=== PATIENT | female | born 1950 ===

== ENCOUNTER 2018-03-27 13:42 | Inpatient (IN) | payer OTHER ==
[2018-03-27] MEDS ORDERED: Albuterol-Ipratrop 3 mg / 0.5 (3 ml) UD IH STA (14:08)
--- NOTE | 2018-03-27 14:20 | RAD ---
Date of service: 03/27/2018 PROCEDURE: CHEST RADIOGRAPH, 1 VIEW HISTORY: SOB, cough, h/o liver CA COMPARISON: None available. FINDINGS: LUNGS: Opacity at the left lung base may represent consolidation or mass. No right-sided opacity. PLEURA: Moderate left pleural effusion. No right pleural effusion. No pneumothorax. CARDIOVASCULAR: Normal. OSSEOUS STRUCTURES: No significant abnormalities. VISUALIZED UPPER ABDOMEN: Normal. OTHER FINDINGS: None. IMPRESSION: Moderate left pleural effusion. Opacity at left base may represent consolidation or neoplasm.
[2018-03-27 14:29] LABS: BASO % 0.7 % (0.0-2.0); EOS # 0.2 K/uL (0.0-0.7); EOS % 2.7 % (0.0-4.0); HEMOGLOBIN 10.2 g/dL (11.0-16.0); LYMPH # 1.2 K/uL (1.0-4.3); LYMPH % 18.6 % (20.0-40.0); MEAN CORPUSCULAR HEMOGLOBIN 26.6 pg (27.0-31.0); MEAN CORPUSCULAR HGB CONC 33.3 g/dL (33.0-37.0); MEAN PLATELET VOLUME 6.6 fL (7.2-11.7); MONO # 0.5 K/uL (0.0-0.8); MONO % 8.1 % (0.0-10.0); NEUT # 4.3 K/uL (1.8-7.0); NEUT % 69.9 % (50.0-75.0); RBC 3.85 Mil/uL (3.80-5.20); RED CELL DISTRIBUTION WIDTH 14.9 % (11.5-14.5); WHITE BLOOD COUNT 6.2 K/uL (4.8-10.8)
[2018-03-27 14:36] LABS: INR 1.2; PROTHROMBIN TIME 12.7 SECONDS (9.7-12.2)
[2018-03-27] MEDS ORDERED: Albuterol-Ipratrop 3 mg / 0.5 (3 ml) UD ONE (14:37)
[2018-03-27 14:42] LABS: ALB/GLOB RATIO 0.8 (1.0-2.1); ALBUMIN 3.5 g/dL (3.5-5.0); ALT/SGPT 30 U/L (9-52); AST/SGOT 47 U/L (14-36); BLOOD UREA NITROGEN 5 mg/dL (7-17); CALCIUM 9.1 mg/dl (8.6-10.4); GFR AFRICAN-AMERICAN > 60; GFR NON-AFRICAN AMERICAN > 60; LIPASE 305 U/L (23-300)
[2018-03-27] MEDS ORDERED: Potassium Chloride 20 mEq ER Tab PO STA (14:47)
[2018-03-27 14:54] LABS: SQUAMOUS EPITHIAL 16 /hpf (0-5); URINE BACTERIA RARE (<OCC); URINE BILIRUBIN NEGATIVE (NEGATIVE); URINE BLOOD NEGATIVE (NEGATIVE); URINE CALCIUM OXALATE CRYSTALS FEW /hpf (<OCC); URINE CLARITY Hazy (Clear); URINE COLOR Amber (YELLOW); URINE GLUCOSE (UA) NORMAL (Normal); URINE LEUKOCYTE ESTERASE 2+ Leu/uL (Negative); URINE PROTEIN 1+ mg/dL (NEGATIVE)
[2018-03-27 14:54] LABS: B-TYPE NATRIURETIC PEPTIDE 109 pg/mL (0-900)
[2018-03-27] MEDS ORDERED: Potassium Chloride 20 mEq ER Tab PO ONE (15:09)
[2018-03-27] MEDS ORDERED: Iodixanol 320 MG/ML 100 ML BOTTLE IV ONE (15:28)
--- NOTE | 2018-03-27 16:32 | CT ---
Date of service: 03/27/2018 PROCEDURE: CT Chest with contrast (Pulmonary Angiogram) HISTORY: SOB, cough, h/o liver CA. r/o PE, PNA. COMPARISON: None available. TECHNIQUE: Axial computed tomography images were obtained of the chest in the pulmonary arterial phase of enhancement. Coronal and sagittal reformatted images were created and reviewed. Intravenous contrast dose: 100 mL Visipaque 320 Radiation dose: Total exam DLP = 165.8 mGy-cm. This CT exam was performed using one or more of the following dose reduction techniques: Automated exposure control, adjustment of the mA and/or kV according to patient size, and/or use of iterative reconstruction technique. FINDINGS: PULMONARY ARTERIES: Unremarkable. No pulmonary embolism. AORTA: No acute findings. No thoracic aortic aneurysm. LUNGS: Peripheral right upper lobe 5 mm nodule (series 2, image 63). Medial right upper lobe 1.3 x 1.0 cm nodule (series 2, image 71). Medial right lower lobe 8 mm nodule (series 2, image 117). Inferior right lower lobe 5 mm nodule (series 2, image 125). Segmental left lower lobe atelectasis. No mass or pulmonary consolidation. PLEURAL SPACES: Large left pleural effusion. No pneumothorax. HEART: Unremarkable. No cardiomegaly. No significant pericardial effusion. LYMPH NODES: No lymphadenopathy. BONES, CHEST WALL: Unremarkable. No fracture or destructive lesion OTHER FINDINGS: 3.0 x 1.5 cm low-density lesion in the anterior left hepatic lobe (series 2, too 170) Abdominal ascites. Partially imaged questionable right hydronephrosis. IMPRESSION: Unremarkable CT pulmonary angiogram. No pulmonary embolus. Large left pleural effusion with subjacent atelectasis. Multiple right-sided pulmonary nodules ranging from 5-13 mm. 3.2 cm low-density lesion in the liver. Questionable partially imaged right hydronephrosis.
[2018-03-27] MEDS ORDERED: Piperacillin/Tazobact 3.375 gm 100 ML IVPB STA (16:56)
--- NOTE | 2018-03-27 16:58 | C.PDOC ---
Time Seen by Provider: 03/27/18 13:58 Chief Complaint (Nursing): Shortness Of Breath History Per: Patient, Family Onset/Duration Of Symptoms: Days (few) Current Symptoms Are (Timing): Still Present Exacerbating Factor(s): Coughing Severity: Moderate Associated Symptoms: Ankle/Leg Swelling Additional History Per: Prior Records Past Medical History Reviewed: Historical Data, Nursing Documentation, Vital Signs Vital Signs: Last Vital Signs Temp 98.3 F 03/27/18 16:04 Pulse 104 H 03/27/18 16:04 Resp 25 H 03/27/18 16:04 BP 147/86 03/27/18 16:04 Pulse Ox 99 03/27/18 16:58 - Medical History PMH: Hypothyroidism, Malignancy (Liver) Surgical History: Cholecystectomy Other Surgeries: Liver surgery for CA and drain placement Family History: States: Unknown Family Hx - Social History Hx Tobacco Use: No Hx Alcohol Use: No Hx Substance Use: No Review Of Systems Except As Marked, All Systems Reviewed And Found Negative. Constitutional: Positive for: Malaise. Negative for: Fever ENT: Negative for: Nose Congestion, Throat Pain Respiratory: Positive for: Cough, Shortness of Breath. Negative for: Hemoptysis , Sputum Gastrointestinal: Negative for: Vomiting, Abdominal Pain, Diarrhea Genitourinary: Negative for: Dysuria Musculoskeletal: Negative for: Neck Pain Skin: Negative for: Rash Neurological: Negative for: Weakness, Numbness Physical Exam - Physical Exam Appears: No Acute Distress, Chronically Ill Skin: Normal Color, Warm, Dry Head: Atraumatic, Normacephalic Eye(s): bilateral: PERRL, EOMI Neck: Normal ROM, Supple Cardiovascular: Rhythm Regular Respiratory: Decreased Breath Sounds (left lower lung field), No Accessory Muscle Use Gastrointestinal/Abdominal: Soft, No Tenderness, Ascites, Other (Abdominal drain in place) Extremity: Normal ROM, Pedal Edema, No Calf Tenderness Neurological/Psych: Oriented x3, Normal Motor, Normal Sensation ED Course And Treatment - Laboratory Results Result Diagrams: 03/27/18 14:20 03/27/18 14:20 Lab Interpretation: Abnormal Interpretation Of Abnormal: Hypokalemia. Mild anemia. ECG: Interpreted By Me, Viewed By Me ECG Rhythm: Sinus Tachycardia, Nonspecific Changes Rate From EC O2 Sat by Pulse Oximetry: 99 Pulse Ox Interpretation: Normal - Radiology CXR: Viewed By Me, Read By Radiologist CXR Interpretation: Yes: Other (left pleural effusion) - CT Scan/US CTA of chest Other Rad Studies (CT/US): Read By Radiologist, Radiology Report Reviewed CT/US Interpretation: IMPRESSION: Unremarkable CT pulmonary angiogram. No pulmonary embolus. Large left pleural effusion with subjacent atelectasis. Multiple right-sided pulmonary nodules ranging from 5-13 mm. 3.2 cm low- density lesion in the liver. Questionable partially imaged right hydronephrosis. Progress - Interventions Interventions:: Observation, Oxygen - Medications Administered Oral: Other (KCl) - Data Reviewed Data Reviewed: Lab, Diagnostic imaging, EKG, Old records - Patient Status Patient status: Partially improved - Continuity of Care Discussed patient case with:: Patient, Family-HIPPA compliant, ED Nurse, On- call PMD-pt unassigned - Patient Plan Patient Plan: Admission, Telemetry Disposition Discussed With DrTrino: Danial Blunt ([employer]vel Operator) Comment: He accepted pt on his service. Doctor Will See Patient In The: Hospital Counseled Patient/Family Regarding: Studies Performed, Diagnosis - Disposition Disposition: HOSPITALIZED Disposition Time: 17:08 Condition: SERIOUS - Clinical Impression Clinical Impression: Pleural effusion on left, Liver cancer, Dyspnea
[2018-03-27] MEDS ORDERED: Piperacill/Tazo 3.375gm in Dex 3.375 GM/50 ML BAG IVPB STA (17:08)
[2018-03-27] MEDS ORDERED: Albuterol-Ipratrop 3 mg / 0.5 (3 ml) UD INH PRN (20:10)
--- NOTE | 2018-03-27 20:13 | CP.PCM.HP ---
History of Present Illness - History of Present Illness History of Present Illness: COMPREHENSIVE HISTORY & PHYSICAL EXAM HPI Patient presented to [facility] ([facility] emergency room complaining of shortness of breath. Patient was evaluated in the ER, chest x-ray which showed left pleural effusion. CT of the chest was done which showed no pulmonary embolism. There was a large left pleural effusion with multiple tumors in the lungs. Patient has a history of CA of the liver is under the care of oncologist at [facility]. Currently patient is not on any medication. PAST HIST. PERSONAL HIST: Smoking. N Alcohol. N Allergy N Travel_- . FAMILY HIST : ROS : Constitutional: Negative for weight change, chills, night sweats, fatigue and usage of assist device. Eyes: Negative for redness, swelling, itching, discharge, vision changes, blurry vision, double vision, glaucoma, cataracts, Ears: Negative for hearing loss, ringing, , tinnitus, vertigo Nose: Negative for rhinorrhea, stuffiness, sniffing, itching, postnasal drip, discoloration, nasal congestion and epistaxis. Throat: Negative for throat clearing, sore throat, hoarseness, difficulty swallowing and difficulty speaking. Respiratory shortness of breath wheezing left pleuritic chest pain. Cardiovascular: Negative for chest pain, palpitations, orthopnea, PND, Edema of legs, leg cramps, angina, claudication, , irregular heartbeat, Neurology: Negative for irritability, muscle weakness, numbness and tingling, seizures, tremors, migraines, slurred speech, syncope, memory loss, mood changes , recurrent headaches Gastrointestinal: Negative for difficulty swallowing, diarrhea, constipation, black stools, rectal bleeding, nausea, flatulence, reflux, poor appetite, changes in bowel habits, abdominal pain Genitourinary: Negative for frequent urination, hematuria, discharge, incontinence, urinary retention, frequent UTI, Psychiatric: Negative for depression, anxiety/panic, suicidal tendencies, Musculoskeletal: Negative for swollen joints, back pain, , neck pain, morning stiffness of joints, . Skin: Negative for rash, ulcers, itching, dry skin and pigmented lesions. P/E: Constitutional: Appears stated age and in no apparent distress. Head: Normocephalic. Ears: External ear canals patent without inflammation. Tympanic membranes intact with normal light reflex and landmark. Eyes: Pupils are central, bilaterally equal, symmetrical and reacts to light with normal movements and no icterus or pallor. Nose: External nares are patent. Mucosa is pink Mouth-Throat: Good general appearance and condition. No post-pharyngeal/oropharyngeal erythema and tonsillar hypertrophy. Good dental hygiene. Neck-Lymphatic: Neck is supple with normal ROM, no thyromegaly, lymph nodes or masses. JVD is normal with no carotid bruit. Lungs: Decreased air entry on the left side Cardiovascular: S1 and S2 are normal with no murmurs, gallops and rub. GI Exam: No hepatomegaly. Abdomen is soft and non-tender. No Organomegaly , masses or hernias are evident and bowel sounds are normal and active. Neurology: Higher function and all cranial nerves intact, with no gross motor or sensory deficit. Superficial and deep reflexes are normal with downwards planters. No cerebellar deficit with normal gait. Musculoskeletal: No tender spots with normal curvature of the spine with no swelling or restricted ROM of the small and large joints. Extremities: Homans sign absent. Intact pulses with no pitting edema, calf tenderness or skin color changes. Skin: No rash, eruptions or abnormal skin pigmentation LAB/RADIOLOGY: ASSESMENT : Large left pleural effusion etiology probably secondary to underlying malignancy. CA of the liver PLAN: Pulmonary evaluation. Will need a pleural tap. Oxygen and nebulizer treatment Present on Admission - Present on Admission Any Indicators Present on Admission: No Past Patient History - Past Social History Smoking Status: Never Smoked - ENDOCRINE/METABOLIC Hx Hypothyroidism: Yes - GASTROINTESTINAL Other/Comment: liver CA - PSYCHIATRIC Hx Substance Use: No - SURGICAL HISTORY Hx Cholecystectomy: Yes Meds Allergies/Adverse Reactions: Allergies Allergy/AdvReac Type Severity Reaction Status Date / Time No Known Allergies Allergy Unverified 03/27/18 13:53 Results - Vital Signs Recent Vital Signs: Last Vital Signs Temp 98.3 F 03/27/18 16:04 Pulse 99 H 03/27/18 19:51 Resp 26 H 03/27/18 19:51 BP 118/78 03/27/18 19:51 Pulse Ox 96 03/27/18 19:51 - Labs Result Diagrams: 03/28/18 07:53 03/28/18 07:53 Labs: Laboratory Results - last 24 hr 03/27/18 03/27/18 03/27/18 14:20 14:20 14:20 WBC 6.2 RBC 3.85 Hgb 10.2 L Hct 30.8 L MCV 80.0 L MCH 26.6 L MCHC 33.3 RDW 14.9 H Plt Count 331 MPV 6.6 L Neut % (Auto) 69.9 Lymph % (Auto) 18.6 L Owsley % (Auto) 8.1 Eos % (Auto) 2.7 Baso % (Auto) 0.7 Neut # (Auto) 4.3 Lymph # (Auto) 1.2 Owsley # (Auto) 0.5 Eos # (Auto) 0.2 Baso # (Auto) 0.0 PT 12.7 H INR 1.2 APTT 31 D-Dimer, Quantitative 833 H Sodium 139 Potassium 2.9 L Chloride 101 Carbon Dioxide 29 Anion Gap 12 BUN 5 L Creatinine 0.6 L Est GFR ( Amer) > 60 Est GFR (Non-Af Amer) > 60 Random Glucose 113 H Calcium 9.1 Total Bilirubin 0.5 AST 47 H ALT 30 Alkaline Phosphatase 184 H Troponin I < 0.0120 NT-Pro-B Natriuret Pep 109 Total Protein 7.9 Albumin 3.5 Globulin 4.4 H Albumin/Globulin Ratio 0.8 L Lipase 305 H Urine Color Urine Clarity Urine pH Ur Specific Rogers Urine Protein Urine Glucose (UA) Urine Ketones Urine Blood Urine Nitrate Urine Bilirubin Urine Urobilinogen Ur Leukocyte Esterase Urine WBC (Auto) Urine RBC (Auto) Ur Squamous Epith Cells Calcium Oxalate Crystal Urine Bacteria 03/27/18 14:34 WBC RBC Hgb Hct MCV MCH MCHC RDW Plt Count MPV Neut % (Auto) Lymph % (Auto) Owsley % (Auto) Eos % (Auto) Baso % (Auto) Neut # (Auto) Lymph # (Auto) Owsley # (Auto) Eos # (Auto) Baso # (Auto) PT INR APTT D-Dimer, Quantitative Sodium Potassium Chloride Carbon Dioxide Anion Gap BUN Creatinine Est GFR ( Amer) Est GFR (Non-Af Amer) Random Glucose Calcium Total Bilirubin AST ALT Alkaline Phosphatase Troponin I NT-Pro-B Natriuret Pep Total Protein Albumin Globulin Albumin/Globulin Ratio Lipase Urine Color Daphne Urine Clarity Hazy Urine pH 5.0 Ur Specific Rogers 1.023 Urine Protein 1+ H Urine Glucose (UA) Normal Urine Ketones Negative Urine Blood Negative Urine Nitrate Negative Urine Bilirubin Negative Urine Urobilinogen 4.0 H Ur Leukocyte Esterase 2+ H Urine WBC (Auto) 13 H Urine RBC (Auto) 6 H Ur Squamous Epith Cells 16 H Calcium Oxalate Crystal Few H Urine Bacteria Rare
[2018-03-27] MEDS ORDERED: Latanoprost 2.5 ml Opht Soln OS SCH (22:00)
[2018-03-28 08:10] LABS: HEMOGLOBIN 9.4 g/dL (11.0-16.0); MEAN CELL VOLUME 80.4 fL (81.0-99.0); MEAN CORPUSCULAR HEMOGLOBIN 26.6 pg (27.0-31.0); MEAN CORPUSCULAR HGB CONC 33.1 g/dL (33.0-37.0); RBC 3.52 Mil/uL (3.80-5.20); WHITE BLOOD COUNT 4.7 K/uL (4.8-10.8)
[2018-03-28 09:03] LABS: ALB/GLOB RATIO 0.7 (1.0-2.1); ALBUMIN 2.8 g/dL (3.5-5.0); ALT/SGPT 30 U/L (9-52); AST/SGOT 45 U/L (14-36); BLOOD UREA NITROGEN 5 mg/dL (7-17); CALCIUM 8.8 mg/dl (8.6-10.4); GFR AFRICAN-AMERICAN > 60; GFR NON-AFRICAN AMERICAN > 60
[2018-03-28] MEDS: cefTRIAXone IV 1 gm in Dextros 50 ML IVPB SCH (09:27)
--- NOTE | 2018-03-28 09:37 | CP.PCM.CON ---
History of Present Illness - History of Present Illness History of Present Illness: reason for consultation: large left pleural effusion 67-year-old female with history of liver cancer status post surgery and chemotherapy presented with cough and chest tightness/shortness of breath. Cough is mostly dry. Denies fever chills. CAT scan of the chest consistent with large left pleural effusion with right lung nodules and liver mass. Patient lying comfortably in no acute distress with good saturation Review of Systems - Review of Systems All systems: reviewed and no additional remarkable complaints except (cough and chest tightness) Past Patient History - Past Social History Smoking Status: Never Smoked - CARDIAC Hx Cardiac Disorders: No - PULMONARY Hx Respiratory Disorders: No - NEUROLOGICAL Hx Neurological Disorder: No - HEENT Hx HEENT Problems: No - RENAL Hx Chronic Kidney Disease: No - ENDOCRINE/METABOLIC Hx Endocrine Disorders: Yes Hx Hypothyroidism: Yes - HEMATOLOGICAL/ONCOLOGICAL Hx Chemotherapy: Yes (november 2017) Other/Comment: Hx: Liver ca received 4 cycles of chemo treatment; last received november 2017 - INTEGUMENTARY Hx Dermatological Problems: No - MUSCULOSKELETAL/RHEUMATOLOGICAL Hx Falls: No - GASTROINTESTINAL Hx Gastrointestinal Disorders: Yes Other/Comment: liver CA - GENITOURINARY/GYNECOLOGICAL Hx Genitourinary Disorders: No - PSYCHIATRIC Hx Substance Use: No - SURGICAL HISTORY Hx Surgeries: Yes Hx Cholecystectomy: Yes Other/Comment: Liver surgery for cancer and drain placement - ANESTHESIA Hx Anesthesia: Yes Hx Anesthesia Reactions: No Meds Allergies/Adverse Reactions: Allergies Allergy/AdvReac Type Severity Reaction Status Date / Time No Known Allergies Allergy Unverified 03/27/18 13:53 - Medications Medications: Current Medications Albuterol/Ipratropium (Duoneb 3 Mg/0.5 Mg (3 Ml) Ud) 3 ml INH RQ4 PRN PRN Reason: Wheezing Cyproheptadine HCl (Periactin) 4 mg PO DAILY JENNIE Famotidine (Pepcid) 20 mg PO BID JENNIE Ceftriaxone Sodium (Rocephin Iv 1 Gm Duplex) 50 mls @ 100 mls/hr IVPB DAILY JENNIE PRN Reason: Protocol Last Admin: 03/28/18 09:27 Dose: 100 mls/hr Latanoprost (Xalatan Opht) 0 ml OS HS JENNIE Levothyroxine Sodium (Synthroid) 25 mcg PO 0630 JENNIE Pilocarpine HCl (Isopto Carpine 2% Opht Soln) 0 drop OS TID JENNIE Spironolactone (Aldactone) 25 mg PO DAILY [facility] Last Admin: 03/28/18 09:28 Dose: 25 mg Physical Exam - Head Exam Head Exam: ATRAUMATIC, NORMOCEPHALIC - Eye Exam Eye Exam: Normal appearance - Neck Exam Neck exam: Positive for: Normal Inspection - Respiratory Exam Respiratory Exam: Decreased Breath Sounds - Cardiovascular Exam Cardiovascular Exam: REGULAR RHYTHM - GI/Abdominal Exam GI & Abdominal Exam: Normal Bowel Sounds, Soft Results - Vital Signs Recent Vital Signs: Last Vital Signs Temp 97.8 F 03/28/18 07:32 Pulse 98 H 03/28/18 09:26 Resp 18 03/28/18 07:32 BP 111/73 03/28/18 09:26 Pulse Ox 96 03/28/18 07:32 - Labs Result Diagrams: 03/28/18 07:53 03/28/18 07:53 Labs: Laboratory Results - last 24 hr 03/27/18 03/27/18 03/27/18 14:20 14:20 14:20 WBC 6.2 RBC 3.85 Hgb 10.2 L Hct 30.8 L MCV 80.0 L MCH 26.6 L MCHC 33.3 RDW 14.9 H Plt Count 331 MPV 6.6 L Neut % (Auto) 69.9 Lymph % (Auto) 18.6 L Page % (Auto) 8.1 Eos % (Auto) 2.7 Baso % (Auto) 0.7 Neut # (Auto) 4.3 Lymph # (Auto) 1.2 Page # (Auto) 0.5 Eos # (Auto) 0.2 Baso # (Auto) 0.0 PT 12.7 H INR 1.2 APTT 31 D-Dimer, Quantitative 833 H Sodium 139 Potassium 2.9 L Chloride 101 Carbon Dioxide 29 Anion Gap 12 BUN 5 L Creatinine 0.6 L Est GFR ( Amer) > 60 Est GFR (Non-Af Amer) > 60 Random Glucose 113 H Calcium 9.1 Total Bilirubin 0.5 AST 47 H ALT 30 Alkaline Phosphatase 184 H Troponin I < 0.0120 NT-Pro-B Natriuret Pep 109 Total Protein 7.9 Albumin 3.5 Globulin 4.4 H Albumin/Globulin Ratio 0.8 L Lipase 305 H Urine Color Urine Clarity Urine pH Ur Specific Offerman Urine Protein Urine Glucose (UA) Urine Ketones Urine Blood Urine Nitrate Urine Bilirubin Urine Urobilinogen Ur Leukocyte Esterase Urine WBC (Auto) Urine RBC (Auto) Ur Squamous Epith Cells Calcium Oxalate Crystal Urine Bacteria 03/27/18 03/28/18 03/28/18 14:34 07:53 07:53 WBC 4.7 L RBC 3.52 L Hgb 9.4 L Hct 28.3 L MCV 80.4 L MCH 26.6 L MCHC 33.1 RDW 15.0 H Plt Count 314 MPV 7.0 L Neut % (Auto) Lymph % (Auto) Page % (Auto) Eos % (Auto) Baso % (Auto) Neut # (Auto) Lymph # (Auto) Page # (Auto) Eos # (Auto) Baso # (Auto) PT INR APTT D-Dimer, Quantitative Sodium 141 Potassium 3.4 L Chloride 103 Carbon Dioxide 29 Anion Gap 13 BUN 5 L Creatinine 0.6 L Est GFR ( Amer) > 60 Est GFR (Non-Af Amer) > 60 Random Glucose 74 Calcium 8.8 Total Bilirubin 0.7 AST 45 H ALT 30 Alkaline Phosphatase 151 H Troponin I NT-Pro-B Natriuret Pep Total Protein 6.7 Albumin 2.8 L Globulin 3.9 Albumin/Globulin Ratio 0.7 L Lipase Urine Color Daphne Urine Clarity Hazy Urine pH 5.0 Ur Specific Offerman 1.023 Urine Protein 1+ H Urine Glucose (UA) Normal Urine Ketones Negative Urine Blood Negative Urine Nitrate Negative Urine Bilirubin Negative Urine Urobilinogen 4.0 H Ur Leukocyte Esterase 2+ H Urine WBC (Auto) 13 H Urine RBC (Auto) 6 H Ur Squamous Epith Cells 16 H Calcium Oxalate Crystal Few H Urine Bacteria Rare Assessment & Plan (1) Pleural effusion on left Assessment and Plan: rule out secondary to malignancy thoracentesis Patient wants to discuss with her daughter Continue present treatment for now Status: Acute (2) Liver cancer Status: Acute
[2018-03-28] MEDS ORDERED: Levothyroxine 25 MCG TAB PO SCH (10:00)
[2018-03-28] MEDS: Pilocarpine 2% Opht (15 ml) OS SCH ×3 (10:07→17:55)
--- NOTE | 2018-03-28 14:37 | CP.PCM.PN ---
Subjective - Date & Time of Evaluation Date of Evaluation: 03/28/18 Time of Evaluation: 14:36 - Subjective Subjective: less shortness of breath. Vital signs are stable afebrile Physical examination remains unchanged Pulmonary evaluation noted. Awaiting patient's decision for pleural tap. Objective - Vital Signs/Intake and Output Vital Signs (last 24 hours): Temp Pulse Resp BP Pulse Ox 97.8 F 98 H 18 111/73 96 03/28/18 07:32 03/28/18 09:26 03/28/18 07:32 03/28/18 09:26 03/28/18 07:32 Intake and Output: 03/28/18 03/28/18 11:59 23:59 Intake Total 120 Balance 120 - Medications Medications: Current Medications Albuterol/Ipratropium (Duoneb 3 Mg/0.5 Mg (3 Ml) Ud) 3 ml INH RQ4 PRN PRN Reason: Wheezing Cyproheptadine HCl (Periactin) 4 mg PO DAILY [facility] Last Admin: 03/28/18 10:06 Dose: 4 mg Famotidine (Pepcid) 20 mg PO BID JENNIE Last Admin: 03/28/18 10:10 Dose: 20 mg Ceftriaxone Sodium (Rocephin Iv 1 Gm Duplex) 50 mls @ 100 mls/hr IVPB DAILY JENNIE PRN Reason: Protocol Last Admin: 03/28/18 09:27 Dose: 100 mls/hr Latanoprost (Xalatan Opht) 0 ml OS HS JENNIE Levothyroxine Sodium (Synthroid) 25 mcg PO 0630 JENNIE Pilocarpine HCl (Isopto Carpine 2% Opht Soln) 0 drop OS TID JENNIE Last Admin: 03/28/18 13:33 Dose: 1 drop Spironolactone (Aldactone) 25 mg PO DAILY [facility] Last Admin: 03/28/18 09:28 Dose: 25 mg - Labs Labs: 03/28/18 07:53 03/28/18 07:53 PT 12.7 SECONDS (9.7-12.2) H 03/27/18 14:20 INR 1.2 03/27/18 14:20 APTT 31 SECONDS (21-34) 03/27/18 14:20
[2018-03-28] MEDS ORDERED: Latanoprost 2.5 ml Opht Soln OS SCH (22:00)
[2018-03-29] MEDS: Levothyroxine 25 MCG TAB PO SCH (06:11)
[2018-03-29] MEDS ORDERED: Levothyroxine 25 MCG TAB PO SCH (06:30)
[2018-03-29] MEDS: Pilocarpine 2% Opht (15 ml) OS SCH (09:09)
[2018-03-29] MEDS: cefTRIAXone IV 1 gm in Dextros 50 ML IVPB SCH (09:38)
[2018-03-29] MEDS: Pilocarpine 2% Opht (15 ml) OU SCH ×2 (13:11→17:16)
--- NOTE | 2018-03-29 14:55 | CP.PCM.PN ---
Subjective - Date & Time of Evaluation Date of Evaluation: 03/29/18 Time of Evaluation: 14:53 - Subjective Subjective: patient currently has no shortness of breath or chest pain. Afebrile with vital signs stable Physical examination remain same. Patient has a permanent catheter in the abdominal cavity for periodic removal of ascites fluid by the family Waiting for pleural tap. Objective - Vital Signs/Intake and Output Vital Signs (last 24 hours): Temp Pulse Resp BP Pulse Ox 98.1 F 90 18 126/83 99 03/29/18 07:00 03/29/18 07:10 03/29/18 07:00 03/29/18 07:00 03/29/18 07:00 Intake and Output: 03/29/18 03/29/18 11:59 23:59 Intake Total 120 Balance 120 - Medications Medications: Current Medications Albuterol/Ipratropium (Duoneb 3 Mg/0.5 Mg (3 Ml) Ud) 3 ml INH RQ4 PRN PRN Reason: Wheezing Last Admin: 03/29/18 07:56 Dose: 3 ml Cyproheptadine HCl (Periactin) 4 mg PO DAILY JENNIE Last Admin: 03/29/18 09:08 Dose: 4 mg Famotidine (Pepcid) 20 mg PO BID JENNIE Last Admin: 03/29/18 09:08 Dose: 20 mg Ceftriaxone Sodium (Rocephin Iv 1 Gm Duplex) 50 mls @ 100 mls/hr IVPB DAILY JENNIE PRN Reason: Protocol Last Admin: 03/29/18 09:38 Dose: 100 mls/hr Latanoprost (Xalatan Opht) 0 ml OU HS JENNIE Levothyroxine Sodium (Synthroid) 25 mcg PO 0630 JENNIE Last Admin: 03/29/18 06:11 Dose: 25 mcg Pilocarpine HCl (Isopto Carpine 2% Opht Soln) 1 drop OU TID JENNIE Last Admin: 03/29/18 13:11 Dose: 1 drop Spironolactone (Aldactone) 25 mg PO DAILY [facility] Last Admin: 03/29/18 09:08 Dose: 25 mg - Labs Labs: 03/28/18 07:53 03/28/18 07:53 PT 12.7 SECONDS (9.7-12.2) H 03/27/18 14:20 INR 1.2 03/27/18 14:20 APTT 31 SECONDS (21-34) 03/27/18 14:20
[2018-03-29] MEDS: Latanoprost 2.5 ml Opht Soln OU SCH (21:29)
[2018-03-30] MEDS: Levothyroxine 25 MCG TAB PO SCH (05:53)
[2018-03-30] MEDS: cefTRIAXone IV 1 gm in Dextros 50 ML IVPB SCH (09:33)
[2018-03-30] MEDS: Pilocarpine 2% Opht (15 ml) OU SCH ×3 (09:33→17:22)
--- NOTE | 2018-03-30 12:42 | PCM.SURG1 ---
Surgeon's Initial Post Op Note - Surgeon's Notes Surgeon: Lukas Xie md Actuarial Science Teacher: none Type of Anesthesia: Local Pre-Operative Diagnosis: Left pleural effusion Operative Findings: US showed moderate left effusion Post-Operative Diagnosis: Left pleural effusion Operation Performed: US guided left thoracentesis Specimen/Specimens Removed: 800 cc of straw colored fluid Estimated Blood Loss: EBL {In ML}: 0 Blood Products Given: N/A Drains Used: No Drains Post-Op Condition: Fair Date of Surgery/Procedure: 03/30/18 Time of Surgery/Procedure: 12:00
--- NOTE | 2018-03-30 13:24 | CP.PCM.PN ---
Subjective - Date & Time of Evaluation Date of Evaluation: 03/30/18 Time of Evaluation: 12:00 - Subjective Subjective: patient seen and examined Status post thoracentesis and 800 cc off straw-colored fluid removed Afebrile No chest pain Objective - Vital Signs/Intake and Output Vital Signs (last 24 hours): Temp Pulse Resp BP Pulse Ox 98.0 F 96 H 18 128/85 99 03/30/18 12:22 03/30/18 12:22 03/30/18 12:22 03/30/18 12:22 03/30/18 12:22 - Medications Medications: Current Medications Albuterol/Ipratropium (Duoneb 3 Mg/0.5 Mg (3 Ml) Ud) 3 ml INH RQ4 PRN PRN Reason: Wheezing Last Admin: 03/29/18 07:56 Dose: 3 ml Cyproheptadine HCl (Periactin) 4 mg PO DAILY [facility] Last Admin: 03/30/18 09:33 Dose: 4 mg Famotidine (Pepcid) 20 mg PO BID [facility] Last Admin: 03/30/18 09:33 Dose: 20 mg Ceftriaxone Sodium (Rocephin Iv 1 Gm Duplex) 50 mls @ 100 mls/hr IVPB DAILY JENNIE PRN Reason: Protocol Last Admin: 03/30/18 09:33 Dose: 100 mls/hr Latanoprost (Xalatan Opht) 0 ml OU HS [facility] Last Admin: 03/29/18 21:29 Dose: 2.5 ml Levothyroxine Sodium (Synthroid) 25 mcg PO 0630 [facility] Last Admin: 03/30/18 05:53 Dose: 25 mcg Pilocarpine HCl (Isopto Carpine 2% Opht Soln) 1 drop OU TID JENNIE Last Admin: 03/30/18 13:22 Dose: 1 drop Spironolactone (Aldactone) 25 mg PO DAILY [facility] Last Admin: 03/30/18 09:33 Dose: 25 mg - Labs Labs: 03/28/18 07:53 03/28/18 07:53 PT 12.7 SECONDS (9.7-12.2) H 03/27/18 14:20 INR 1.2 03/27/18 14:20 APTT 31 SECONDS (21-34) 03/27/18 14:20 - Head Exam Head Exam: ATRAUMATIC, NORMOCEPHALIC - ENT Exam ENT Exam: Mucous Membranes Moist - Neck Exam Neck Exam: Normal Inspection - Respiratory Exam Respiratory Exam: Decreased Breath Sounds - Cardiovascular Exam Cardiovascular Exam: REGULAR RHYTHM - GI/Abdominal Exam GI & Abdominal Exam: Soft Assessment and Plan (1) Pleural effusion on left Assessment & Plan: status post thoracentesis Fluid analysis Followup chest x-ray Status: Acute (2) Liver cancer Status: Acute
--- NOTE | 2018-03-30 13:52 | CP.PCM.PN ---
Subjective - Date & Time of Evaluation Date of Evaluation: 03/30/18 Time of Evaluation: 13:51 - Subjective Subjective: 800 cc of straw-colored fluid removed from the left pleural cavity. Patient clinically stable Will observe for another 24 hours if stable will discharge in a.m. and follow up with [facility] oncology department. Objective - Vital Signs/Intake and Output Vital Signs (last 24 hours): Temp Pulse Resp BP Pulse Ox 98.0 F 96 H 18 128/85 99 03/30/18 12:22 03/30/18 12:22 03/30/18 12:22 03/30/18 12:22 03/30/18 12:22 - Medications Medications: Current Medications Albuterol/Ipratropium (Duoneb 3 Mg/0.5 Mg (3 Ml) Ud) 3 ml INH RQ4 PRN PRN Reason: Wheezing Last Admin: 03/29/18 07:56 Dose: 3 ml Cyproheptadine HCl (Periactin) 4 mg PO DAILY [facility] Last Admin: 03/30/18 09:33 Dose: 4 mg Famotidine (Pepcid) 20 mg PO BID [facility]ENNIE Last Admin: 03/30/18 09:33 Dose: 20 mg Ceftriaxone Sodium (Rocephin Iv 1 Gm Duplex) 50 mls @ 100 mls/hr IVPB DAILY [facility]ENN[facility] PRN Reason: Protocol Last Admin: 03/30/18 09:33 Dose: 100 mls/hr Latanoprost (Xalatan Opht) 0 ml OU HS [facility] Last Admin: 03/29/18 21:29 Dose: 2.5 ml Levothyroxine Sodium (Synthroid) 25 mcg PO 0630 JENNIE Last Admin: 03/30/18 05:53 Dose: 25 mcg Pilocarpine HCl (Isopto Carpine 2% Opht Soln) 1 drop OU TID JENNIE Last Admin: 03/30/18 13:22 Dose: 1 drop Spironolactone (Aldactone) 25 mg PO DAILY [facility] Last Admin: 03/30/18 09:33 Dose: 25 mg - Labs Labs: 03/28/18 07:53 03/28/18 07:53 PT 12.7 SECONDS (9.7-12.2) H 03/27/18 14:20 INR 1.2 03/27/18 14:20 APTT 31 SECONDS (21-34) 03/27/18 14:20
[2018-03-30 14:05] LABS: BODY FLUID TYPE PLEURAL
--- NOTE | 2018-03-30 14:06 | RAD ---
Date of service: 03/30/2018 HISTORY: POST THORACENTESIS, ONE VIEW CHEST, R/O PTX COMPARISON: 03/27/2018. FINDINGS: LUNGS: The right lung is clear. There is linear atelectasis in the right lower lobe. PLEURA: There is interval decrease in size of left pleural effusion with residual small pleural effusion. No pneumothorax apparent. CARDIOVASCULAR: Normal. OSSEOUS STRUCTURES: No significant abnormalities. VISUALIZED UPPER ABDOMEN: Normal. OTHER FINDINGS: None. IMPRESSION: Interval decrease in size of left pleural effusion with residual small effusion. No pneumothorax.
--- NOTE | 2018-03-30 14:52 | US ---
PROCEDURE: Date of procedure: 03/30/2018 Procedure: 1. Ultrasound-guided left thoracentesis, CPT 81594 Medications: 6cc 1% Lidocaine HISTORY: Left pleural effusion, shortness of breath TECHNIQUE: Following informed consent ,the Patients' left chest was marked. Procedure time-out was called, and the patient was placed in the sitting position and limited ultrasound showed a large left effusion. The patient's left back was prepped and draped in the usual sterile fashion. After the skin was anesthetized with lidocaine, a drainage catheter was advanced under ultrasound guidance into the pleural space. Ultrasound-guided thoracentesis was performed. A total of 800 cubic centimeters of straw-colored fluid removed without complication. A Xeroform dressing was applied. IMPRESSION: Ultrasound guided left thoracentesis. There were no immediate complications.
[2018-03-30 14:59] LABS: BF GROSS APPEARANCE CLOUDY (CLEAR); BODY FLUID MONO/MACROPHAGE 4 % (0-0); BODY FLUID TOTAL COUNT 100 (0-0)
[2018-03-30] MEDS: Latanoprost 2.5 ml Opht Soln OU SCH (21:13)
[2018-03-31] MEDS: Levothyroxine 25 MCG TAB PO SCH (05:58)
[2018-03-31] MEDS: Pilocarpine 2% Opht (15 ml) OU SCH ×2 (10:44→14:19)
[2018-03-31] MEDS: cefTRIAXone IV 1 gm in Dextros 50 ML IVPB SCH (10:45)
--- NOTE | 2018-03-31 13:48 | CP.PCM.DIS ---
Provider - Provider Date of Admission: 03/27/18 17:09 Attending physician: Danial Blunt MD Time Spent in preparation of Discharge (in minutes): 35 Hospital Course - Lab Results Lab Results: Micro Results 03/30/18 14:03 Pleural Fluid Gram Stain - Final 03/30/18 14:03 Pleural Fluid Body Fluid Culture - Preliminary NO GROWTH AFTER 24 HOURS 03/27/18 14:20 Blood Blood Culture - Preliminary NO GROWTH AFTER 3 DAYS 03/27/18 14:45 Blood Blood Culture - Preliminary NO GROWTH AFTER 3 DAYS 03/27/18 14:34 Urine Urine Culture - Final No Growth (<1,000 CFU/ML) Most Recent Lab Values WBC 4.7 K/uL (4.8-10.8) L 03/28/18 07:53 RBC 3.52 Mil/uL (3.80-5.20) L 03/28/18 07:53 Hgb 9.4 g/dL (11.0-16.0) L 03/28/18 07:53 Hct 28.3 % (34.0-47.0) L 03/28/18 07:53 MCV 80.4 fL (81.0-99.0) L 03/28/18 07:53 MCH 26.6 pg (27.0-31.0) L 03/28/18 07:53 MCHC 33.1 g/dL (33.0-37.0) 03/28/18 07:53 RDW 15.0 % (11.5-14.5) H 03/28/18 07:53 Plt Count 314 K/uL (130-400) 03/28/18 07:53 MPV 7.0 fL (7.2-11.7) L 03/28/18 07:53 Neut % (Auto) 69.9 % (50.0-75.0) 03/27/18 14:20 Lymph % (Auto) 18.6 % (20.0-40.0) L 03/27/18 14:20 [place] % (Auto) 8.1 % (0.0-10.0) 03/27/18 14:20 Eos % (Auto) 2.7 % (0.0-4.0) 03/27/18 14:20 Baso % (Auto) 0.7 % (0.0-2.0) 03/27/18 14:20 Neut # (Auto) 4.3 K/uL (1.8-7.0) 03/27/18 14:20 Lymph # (Auto) 1.2 K/uL (1.0-4.3) 03/27/18 14:20 [place] # (Auto) 0.5 K/uL (0.0-0.8) 03/27/18 14:20 Eos # (Auto) 0.2 K/uL (0.0-0.7) 03/27/18 14:20 Baso # (Auto) 0.0 K/uL (0.0-0.2) 03/27/18 14:20 PT 12.7 SECONDS (9.7-12.2) H 03/27/18 14:20 INR 1.2 03/27/18 14:20 APTT 31 SECONDS (21-34) 03/27/18 14:20 D-Dimer, Quantitative 833 ng/mlDDU (0-243) H 03/27/18 14:20 Sodium 141 mmol/L (132-148) 03/28/18 07:53 Potassium 3.4 mmol/L (3.6-5.2) L 03/28/18 07:53 Chloride 103 mmol/L (98-107) 03/28/18 07:53 Carbon Dioxide 29 mmol/L (22-30) 03/28/18 07:53 Anion Gap 13 (10-20) 03/28/18 07:53 BUN 5 mg/dL (7-17) L 03/28/18 07:53 Creatinine 0.6 mg/dL (0.7-1.2) L 03/28/18 07:53 Est GFR ( Amer) > 60 03/28/18 07:53 Est GFR (Non-Af Amer) > 60 03/28/18 07:53 Random Glucose 74 mg/dL (65-105) 03/28/18 07:53 Calcium 8.8 mg/dl (8.6-10.4) 03/28/18 07:53 Total Bilirubin 0.7 mg/dL (0.2-1.3) 03/28/18 07:53 AST 45 U/L (14-36) H 03/28/18 07:53 ALT 30 U/L (9-52) 03/28/18 07:53 Alkaline Phosphatase 151 U/L (38-126) H 03/28/18 07:53 Troponin I < 0.0120 ng/mL (0.00-0.120) 03/27/18 14:20 NT-Pro-B Natriuret Pep 109 pg/mL (0-900) 03/27/18 14:20 Total Protein 6.7 g/dL (6.3-8.3) 03/28/18 07:53 Albumin 2.8 g/dL (3.5-5.0) L 03/28/18 07:53 Globulin 3.9 gm/dL (2.2-3.9) 03/28/18 07:53 Albumin/Globulin Ratio 0.7 (1.0-2.1) L 03/28/18 07:53 Lipase 305 U/L (23-300) H 03/27/18 14:20 Urine Color [place]aph[place] (YELLOW) 03/27/18 14:34 Urine Clarity Hazy (Clear) 03/27/18 14:34 Urine pH 5.0 (5.0-8.0) 03/27/18 14:34 Ur Specific [place] 1.023 (1.003-1.030) 03/27/18 14:34 Urine Protein 1+ mg/dL (NEGATIVE) H 03/27/18 14:34 Urine Glucose (UA) Normal mg/dL (Normal) 03/27/18 14:34 Urine Ketones Negative mg/dL (NEGATIVE) 03/27/18 14:34 Urine Blood Negative (NEGATIVE) 03/27/18 14:34 Urine Nitrate Negative (NEGATIVE) 03/27/18 14:34 Urine Bilirubin Negative (NEGATIVE) 03/27/18 14:34 Urine Urobilinogen 4.0 mg/dL (0.2-1.0) H 03/27/18 14:34 Ur Leukocyte Esterase 2+ James/uL (Negative) H 03/27/18 14:34 Urine WBC (Auto) 13 /hpf (0-5) H 03/27/18 14:34 Urine RBC (Auto) 6 /hpf (0-3) H 03/27/18 14:34 Ur Squamous Epith Cells 16 /hpf (0-5) H 03/27/18 14:34 Calcium Oxalate Crystal Few /hpf (<OCC) H 03/27/18 14:34 Urine Bacteria Rare (<OCC) 03/27/18 14:34 Fluid Source Pleural 03/30/18 14:03 Fluid Appearance Cloudy (CLEAR) 03/30/18 14:03 Fluid WBC 2933.0 /mm3 (0.0-300.0) H 03/30/18 14:03 Fluid RBC 6055.0 /mm3 (0.0-0.0) H 03/30/18 14:03 Fluid Tot Cell Count 100 (0-0) H 03/30/18 14:03 Fluid Neutrophils 66.0 % (0-0) H 03/30/18 14:03 Fluid Lymphocytes 30.0 % (0-0) H 03/30/18 14:03 Fld Monocyte/Macrophag 4 % (0-0) H 03/30/18 14:03 Fluid Comment 03/30/18 14:03 - Hospital Course Hospital Course: Patient presented to [facility] emergency room complaining of shortness of breath. Patient was evaluated in the ER, chest x-ray which showed left pleural effusion. CT of the chest was done which showed no pulmonary embolism. There was a large left pleural effusion with multiple tumors in the lungs. Patient has a history of CA of the liver is under the care of oncologist at [facility] ([facility] Currently patient is not on any medication. patient underwent a left pleural . 800 cc of straw-colored fluid was obtained. The fluid analysis shows WBCs and RBCs in thousands. Cytology still pending. Patient is now asymptomatic and wants to be discharged will follow in [facility] oncology department for further treatment. Discharge Exam - Head Exam Head Exam: ATRAUMATIC, NORMOCEPHALIC Discharge Plan - Follow Up Plan Condition: SERIOUS Disposition: HOME/ ROUTINE
[2018-03-31] MEDS ORDERED: guaiFENesin DM 100 mg-10 mg/5 ml UD PO PRN (14:10)
--- NOTE | 2018-03-31 15:09 | CARD ---
APPROVED REPORT Date of service: 03/27/2018 EKG Measurement Heart [id number] <Conclusion> Sinus tachycardia Nonspecific T wave abnormality Abnormal ECG
--- NOTE | 2018-03-31 15:25 | CP.PCM.PN ---
Subjective - Date & Time of Evaluation Date of Evaluation: 03/31/18 Time of Evaluation: 12:20 - Subjective Subjective: Patient seen and examined Denies shortness of breath complaining of slight cough Afebrile status post thoracentesis Awaiting fluid analysis chest x-ray consistent with small left pleural effusion Objective - Vital Signs/Intake and Output Vital Signs (last 24 hours): Temp Pulse Resp BP Pulse Ox 97.5 F L 91 H 20 132/84 97 03/31/18 07:00 03/31/18 10:48 03/31/18 07:00 03/31/18 10:48 03/31/18 07:00 - Medications Medications: Current Medications Albuterol/Ipratropium (Duoneb 3 Mg/0.5 Mg (3 Ml) Ud) 3 ml INH RQ4 PRN PRN Reason: Wheezing Last Admin: 03/29/18 07:56 Dose: 3 ml Cyproheptadine HCl (Periactin) 4 mg PO DAILY [facility] Last Admin: 03/31/18 10:45 Dose: 4 mg Famotidine (Pepcid) 20 mg PO BID JENNIE Last Admin: 03/31/18 10:45 Dose: 20 mg Guaifenesin/Dextromethorphan (Robitussin Dm) 5 ml PO Q4H PRN PRN Reason: Cough Last Admin: 03/31/18 14:21 Dose: 5 ml Ceftriaxone Sodium (Rocephin Iv 1 Gm Duplex) 50 mls @ 100 mls/hr IVPB DAILY JENNIE PRN Reason: Protocol Last Admin: 03/31/18 10:45 Dose: 100 mls/hr Latanoprost (Xalatan Opht) 0 ml OU HS [facility]ENN[facility] Last Admin: 03/30/18 21:13 Dose: 2.5 ml Levothyroxine Sodium (Synthroid) 25 mcg PO 0630 JENNIE Last Admin: 03/31/18 05:58 Dose: 25 mcg Pilocarpine HCl (Isopto Carpine 2% Opht Soln) 1 drop OU TID JENNIE Last Admin: 03/31/18 14:19 Dose: 1 drop Spironolactone (Aldactone) 25 mg PO DAILY [facility] Last Admin: 03/31/18 10:49 Dose: 25 mg - Labs Labs: 03/28/18 07:53 03/28/18 07:53 PT 12.7 SECONDS (9.7-12.2) H 03/27/18 14:20 INR 1.2 03/27/18 14:20 APTT 31 SECONDS (21-34) 03/27/18 14:20 Assessment and Plan (1) Pleural effusion on left Status: Acute (2) Liver cancer Status: Acute
[2018-03-31 15:35] VITALS: BP 124/79; RESP 18; TEMP 97.7; O2SAT 98
[2018-03-31 16:15] VITALS: PULSE 92
--- NOTE | 2018-04-01 08:30 | RAD ---
Date of service: 03/31/2018 HISTORY: f/u thoracentesis COMPARISON: Portable chest 03/30/2018. FINDINGS: LUNGS: No infiltrate right hemithorax. Underlying infiltrate not excluded at left base. Trace linear atelectasis or fibrosis reiterated at the right base. PLEURA: [id number] left pleural effusion not significantly changed in the interval. No right pleural effusion. No pneumothorax bilaterally. CARDIOVASCULAR: Normal. OSSEOUS STRUCTURES: No significant abnormalities. VISUALIZED UPPER ABDOMEN: Normal. OTHER FINDINGS: None. IMPRESSION: No significant interval change in [id number] left pleural effusion with underlying left basilar airspace disease not excluded. Linear atelectasis or fibrosis again seen at right base.
== END 2018-03-31 17:43 | disposition home or self-care (01) | DRG 187 ==
LOC: C.ER 13:42 → C.9E 17:09 → C.5S 21:52
PROVIDERS: ADMIT Internal Medicine Cardiovascular Disease; ATTEND Internal Medicine Cardiovascular Disease
PROC: 0W9B3ZX Drainage of Left Pleural Cavity, Percutaneous Approach, Diagnostic (ICD-10-PCS; principal; 2018-03-30)
DX: J90 Pleural effusion, not elsewhere classified (principal); C22.9 Malignant neoplasm of liver, not specified as primary or secondary; R18.8 Other ascites; D49.1 Neoplasm of unspecified behavior of respiratory system; E03.9 Hypothyroidism, unspecified; Z90.49 Acquired absence of other specified parts of digestive tract